=== PATIENT | male | born 1960 | race Caucasian/White ===

== ENCOUNTER 2017-11-30 14:02 | Observation (INO) | payer MEDICARE ==
[2017-11-30] MEDS ORDERED: NS 0.9% 1000 ML* 1,000 ML IV SCH ×2 (14:45→16:00)
[2017-11-30 14:47] LABS: ABS Basophils 0.1 10^3/ul (0-0.2); ABS Eosinophils 0.1 10^3/ul (0-0.6); ABS Lymphocytes 3.1 10^3/ul (1.0-4.8); ABS Monocytes 0.9 10^3/ul (0-0.8); ABS Neutrophils 10.8 10^3/ul (1.5-7.7); ABS Nucleated RBC 0 10^3/ul; Eosinophil % 0.4 % (0-6); Hematocrit 44 % (42-52); Hemoglobin 15.1 g/dl (14.0-18.0); Lymphocyte % 20.5 % (25-47); Mean Corpuscular HGB Conc 34 g/dl (31-36); Mean Corpuscular Hemoglobin 31 pg (27-31); Mean Corpuscular Volume 91 fL (80-94); Mean Platelet Volume 8.6 um3 (7.4-10.4); Nucleated Red Blood Cells % 0; Platelet Count 230 10^3/ul (150-450); Red Blood Count 4.82 10^6/ul (4.0-5.4); Red Cell Distribution Width 14 % (10.5-15); White Blood Count 14.9 10^3/ul (3.5-10.8)
--- NOTE | 2017-11-30 14:53 | RAD ---
INDICATION: CVA. COMPARISON: There are no prior studies available for comparison. TECHNIQUE: Contiguous axial sections of the brain were obtained from the skull base to the vertex without contrast. FINDINGS: The ventricles, cisterns and sulci are within normal limits. There are several areas of decreased density in the subcortical and periventricular white matter suggestive of chronic small vessel ischemic changes. No other focal abnormality or mass effect is seen. There is no evidence for hemorrhage. No significant focal osseous abnormality is seen. The visualized portion of the paranasal sinuses and mastoid air cells appear clear. The results of this exam were called to the referring clinician at 1449 hours. IMPRESSION: 1. NO EVIDENCE FOR GROSS ACUTE INFARCT, MASS EFFECT OR HEMORRHAGE. 2. FINDINGS SUGGESTIVE OF MILD CHRONIC SMALL VESSEL ISCHEMIC CHANGES.
[2017-11-30 15:07] LABS: EGFR Non-African American 84.8 (>60)
[2017-11-30] MEDS ORDERED: Aspirin TAB* 325 MG PO ONE (15:21)
[2017-11-30] MEDS ORDERED: Iohexol 350* (CONTRAST) 500 ML MDV IV ONE (15:36)
[2017-11-30 15:47] LABS: Urine Appearance Clear; Urine Blood Negative (Negative); Urine Color Straw; Urine Ketones Negative (Negative); Urine Protein Negative (Negative); Urine Specific Gravity 1.002 (1.010-1.030); Urine Urobilinogen Negative (Negative)
[2017-11-30] MEDS ORDERED: Ondansetron INJ* 2 MG/ML VIAL IV PRN (15:54)
[2017-11-30] MEDS ORDERED: traMADol TAB* 50 MG PO ONE (15:56)
[2017-11-30] MEDS ORDERED: Aspirin 81 mg CHEW TAB* 81 MG TAB.CHEW ONE (15:59)
--- NOTE | 2017-11-30 16:27 | RAD ---
Indication: Stroke. Sagittal and axial T1, axial T2, FLAIR, diffusion and susceptibility weighted images of the brain were obtained. Ventricular structures are midline. No midline shift is noted. The extra-axial spaces are unremarkable. There is mild central and cortical atrophy noted. Periventricular signal abnormalities are noted in the centrum semiovale bilaterally. This is more prominent on the left than on the right. Diffusion-weighted images demonstrates no restriction of diffusion. Posterior fossa and brainstem demonstrates no restriction of diffusion. Susceptibility weighted images demonstrates no susceptibility artifact. Mastoid air cells and paranasal sinuses are grossly unremarkable. IMPRESSION: Chronic ischemic White matter change. No restriction of diffusion is noted.
[2017-11-30] MEDS ORDERED: Aspirin 81 mg CHEW TAB* 81 MG TAB.CHEW PO ONE (16:40)
--- NOTE | 2017-11-30 16:58 | RAD ---
Indication: Stroke. Contrast: Administered 80.2 ml of OMNIPAQUE 350 mg/ml CTA of the neck and head was performed after IV contrast administration. Coronal and sagittal reconstructed images were obtained. Coronal, sagittal and 3-D reconstructive images were obtained. The common carotid arteries demonstrate no intimal wall thickening. No significant plaque is noted. Calcific plaque is noted at the origin of the left internal carotid artery. Minimal calcific plaque is noted at the origin of the right internal carotid artery. The remainder of the internal carotid arteries demonstrates normal caliber without evidence of dissection. The vertebral arteries demonstrates a dominant right vertebral artery. No evidence of vertebral artery dissection is noted. The intracranial circulation demonstrates normal bifurcation of the intracranial carotid arteries. No aneurysmal dilatation or branch occlusion is noted. The basilar artery and posterior cerebral arteries are grossly unremarkable. Soft tissues of the neck demonstrates no evidence of abnormal adenopathy. The visualized cervical spine demonstrates degenerative disc disease at C6-C7. No fracture of the cervical spine is noted. IMPRESSION: No evidence of carotid artery dissection. No branch occlusion or aneurysmal dilatation is noted. Minimal plaque is noted at the origins of both internal carotid arteries. Intracranial vessels demonstrates no aneurysmal dilatation or branch occlusion. The cervical spine demonstrates degenerative disc disease at C6-C7 without evidence of fracture.
--- NOTE | 2017-11-30 17:00 | RAD ---
Indication: Left shoulder injury. Single view of the left shoulder demonstrates a superiorly subluxed humeral head which may represent rotator cuff injury. AC joint arthritis is noted. No obvious fracture is noted on this limited single view. IMPRESSION: Superiorly subluxed humeral head. No fracture is noted.
--- NOTE | 2017-11-30 17:01 | RAD ---
Indication: Chest pain. Single frontal view of the chest performed at 1640 hours was reviewed. No prior study is available for comparison. No mediastinal shift is noted. Heart is of normal size and configuration. Lung lemus appear clear. IMPRESSION: NO ACTIVE CARDIOPULMONARY DISEASE IS NOTED.
--- NOTE | 2017-11-30 17:26 | RAD ---
Indication: Left rib injury. 3 views of left ribs are reviewed. No definite fracture is identified. No pneumothorax is noted. IMPRESSION: No definite fracture of the left ribs is noted.
--- NOTE | 2017-11-30 17:33 | ED ---
David Tony Stephanie, scribed for Santi Howard on 11/30/17 at 1442 . Neurological HPI - HPI Summary HPI Summary: The pt is a 57 y/o M presenting to the ED with c/o LOC that occurred at 11:00 today. Symptoms include L sided CP, 2 bumps on the back of his head and L sided weakness. The pt states he was sitting in a chair on the phone with his nephew. After hanging up the phone the pt remembers waking up on the floor and calling his nephew at 11:30 today. The pt denies confusion upon waking up. He states the L side of his body was dragging when he woke up. - History of Current Complaint Chief Complaint: EDChestPainROMI Stated Complaint: CHEST PAIN,SYNCOPE Time Seen by Provider: 11/30/17 14:22 Hx Obtained From: Patient, Family/Church History Teacher - nephew Onset/Duration: Sudden Onset, Started hours ago, Resolved Timing: Intermittent Episodes Lasting: - 30 min Current Severity: None Pain Intensity: 0 Pain Scale Used: 0-10 Numeric Character: Weak - L side UE and LE Aggravating: Nothing Alleviating: Nothing Associated Signs and Symptoms: Positive: Weakness, Loss of Consciousness, Chest Pain. Negative: Confusion - Allergy/Home Medications Home Medications: Home Medications Aspirin EC TAB* [Ecotrin EC Low Dose 81 MG*] 81 mg PO DAILY 11/30/17 [History Confirmed 11/30/17] Atorvastatin* [Lipitor*] 80 mg PO DAILY 11/30/17 [History Confirmed 11/30/17] Clopidogrel TAB* [Plavix TAB*] 75 mg PO DAILY 11/30/17 [History Confirmed ] Fluticasone NASAL SPRAY 50MCG* [Flonase NASAL SPRAY 50MCG*] 2 spray BOTH NARES DAILY 11/30/17 [History Confirmed 11/30/17] Venlafaxine EXT RELEASE CAP* [Effexor Xr CAP*] 37.5 mg PO DAILY 11/30/17 [ History Confirmed 11/30/17] amLODIPine TAB* [Norvasc 5 mg TAB*] 5 mg PO DAILY 11/30/17 [History Confirmed ] PMH/Surg Hx/FS Hx/Imm Hx Cardiovascular History: Reports: Other Cardiovascular Problems/Disorders - femoral bypass Musculoskeletal History: Reports: Hx of Fracture(s) - shoulder Sensory History: Denies: Hx Legally Blind EENT History: Denies: Hx Deafness - Surgical History Surgery Procedure, Year, and Place: SHOULDER SURGERY - Family History Known Family History: Negative: Renal Disease - Social History Occupation: Disabled Lives: With Family Hx Tobacco Use: Yes Smoking Status (MU): Current Every Day Smoker Review of Systems Positive: Other - 2 bumps on the back of his head. Negative: Fever Positive: Chest Pain Neurological: Other - LOC Positive: Weakness - L side. Negative: Slurred Speech All Other Systems Reviewed And Are Negative: Yes Physical Exam - Summary Physical Exam Summary: Appearance: Well appearing, no pain distress Skin: warm, dry, reflects adequate perfusion Head/face: normal Eyes: EOMI, NARINDER ENT: normal Neck: supple, non-tender Respiratory: CTA, breath sounds present Cardiovascular: RRR, pulses symmetrical Abdomen: non-tender, soft Bowel: present Musculoskeletal: normal, strength/ROM intact Neuro: sensory motor intact, A&Ox3, weakness on L side Triage Information Reviewed: Yes Vital Signs On Initial Exam: Initial Vitals Temp Pulse Resp BP Pulse Ox 97.1 F 84 16 160/73 98 11/30/17 14:08 11/30/17 14:08 11/30/17 14:08 11/30/17 14:08 11/30/17 14:08 Vital Signs Reviewed: Yes Diagnostics - Vital Signs Vital Signs Temp Pulse Resp BP Pulse Ox 11/30/17 14:14 12 11/30/17 14:08 97.1 F 84 16 160/73 98 - Laboratory Lab Results: Lab Results 11/30/17 11/30/17 11/30/17 Range/Units 14:26 14:26 14:26 WBC 14.9 H (3.5-10.8) 10^3/ul RBC 4.82 (4.0-5.4) 10^6/ul Hgb 15.1 (14.0-18.0) g/dl Hct 44 (42-52) % MCV 91 (80-94) fL MCH 31 (27-31) pg MCHC 34 (31-36) g/dl RDW 14 (10.5-15) % Plt Count 230 (150-450) 10^3/ul MPV 8.6 (7.4-10.4) um3 Neut % (Auto) 72.7 (38-83) % Lymph % (Auto) 20.5 L (25-47) % [place] % (Auto) 6.0 (0-7) % Eos % (Auto) 0.4 (0-6) % Baso % (Auto) 0.4 (0-2) % Absolute Neuts (auto) 10.8 H (1.5-7.7) 10^3/ul Absolute Lymphs (auto) 3.1 (1.0-4.8) 10^3/ul Absolute Monos (auto) 0.9 H (0-0.8) 10^3/ul Absolute Eos (auto) 0.1 (0-0.6) 10^3/ul Absolute Basos (auto) 0.1 (0-0.2) 10^3/ul Absolute Nucleated RBC 0 10^3/ul Nucleated RBC % 0 INR (Anticoag Therapy) 1.00 (0.77-1.02) APTT 29.4 (26.0-36.3) seconds Sodium 138 L (139-145) mmol/L Potassium 3.5 (3.5-5.0) mmol/L Chloride 103 (101-111) mmol/L Carbon Dioxide 28 (22-32) mmol/L Anion Gap 7 (2-11) mmol/L BUN 8 (6-24) mg/dL Creatinine 0.92 (0.67-1.17) mg/dL Est GFR ( Amer) 109.1 (>60) Est GFR (Non-Af Amer) 84.8 (>60) BUN/Creatinine Ratio 8.7 (8-20) Glucose 111 H (70-100) mg/dL POC Glucose (mg/dL) (70-100) mg/dL Calcium 9.5 (8.6-10.3) mg/dL Total Bilirubin 0.50 (0.2-1.0) mg/dL AST 30 (13-39) U/L ALT 37 (7-52) U/L Alkaline Phosphatase 70 (34-104) U/L Troponin I 0.01 (<0.04) ng/mL Total Protein 7.7 (6.4-8.9) g/dL Albumin 4.3 (3.2-5.2) g/dL Globulin 3.4 (2-4) g/dL Albumin/Globulin Ratio 1.3 (1-3) // Range/Units 14:48 WBC (3.5-10.8) 10^3/ul RBC (4.0-5.4) 10^6/ul Hgb (14.0-18.0) g/dl Hct (42-52) % MCV (80-94) fL MCH (27-31) pg MCHC (31-36) g/dl RDW (10.5-15) % Plt Count (150-450) 10^3/ul MPV (7.4-10.4) um3 Neut % (Auto) (38-83) % Lymph % (Auto) (25-47) % [place] % (Auto) (0-7) % Eos % (Auto) (0-6) % Baso % (Auto) (0-2) % Absolute Neuts (auto) (1.5-7.7) 10^3/ul Absolute Lymphs (auto) (1.0-4.8) 10^3/ul Absolute Monos (auto) (0-0.8) 10^3/ul Absolute Eos (auto) (0-0.6) 10^3/ul Absolute Basos (auto) (0-0.2) 10^3/ul Absolute Nucleated RBC 10^3/ul Nucleated RBC % INR (Anticoag Therapy) (0.77-1.02) APTT (26.0-36.3) seconds Sodium (139-145) mmol/L Potassium (3.5-5.0) mmol/L Chloride (101-111) mmol/L Carbon Dioxide (22-32) mmol/L Anion Gap (2-11) mmol/L BUN (6-24) mg/dL Creatinine (0.67-1.17) mg/dL Est GFR ( Amer) (>60) Est GFR (Non-Af Amer) (>60) BUN/Creatinine Ratio (8-20) Glucose (70-100) mg/dL POC Glucose (mg/dL) 104 H (70-100) mg/dL Calcium (8.6-10.3) mg/dL Total Bilirubin (0.2-1.0) mg/dL AST (13-39) U/L ALT (7-52) U/L Alkaline Phosphatase (34-104) U/L Troponin I (<0.04) ng/mL Total Protein (6.4-8.9) g/dL Albumin (3.2-5.2) g/dL Globulin (2-4) g/dL Albumin/Globulin Ratio (1-3) Result Diagrams: 11/30/17 14:26 11/30/17 14:26 Lab Statement: Any lab studies that have been ordered have been reviewed, and results considered in the medical decision making process. - CT Brain CT Interpretation: No Acute Changes CT Interpretation Completed By: Radiologist - 1. NO EVIDENCE FOR GROSS ACUTE INFARCT, MASS EFFECT OR HEMORRHAGE. 2. FINDINGS SUGGESTIVE OF MILD CHRONIC SMALL VESSEL ISCHEMIC CHANGES. ED physician has reviewed this report. - EKG 14:15 Cardiac Rate: NL EKG Rhythm: Sinus Rhythm - 79 BPM EKG Interpretation: No acute changes NIH Scale - NIH Scale Level of Consciousness: Alert/Keenly Responsive Ask Patient the Month and His/Her Age: Both Correct Ask Pt to Open/Close Eyes and Motor Grader Rough Grade/Release Non-Paretic Hand: Both Correctly Best Gaze (Only Horizontal Eye Movement): Normal Visual Field Testing: No Visual Loss Facial Paresis-Pt to Smile & Close Eyes or Grimace Symmetry: Normal/Symmetrical Motor Function - Right Arm: No Drift-Holds 10 Seconds Motor Function - Left Arm: No Drift-Holds 10 Seconds Motor Function - Right Leg: No Drift-Holds 10 Seconds Motor Function - Left Leg: Drifts LT 10 seconds Limb Ataxia-Must be out of Proportion to Weakness Present: Absent Sensory (Use Pinprick to Test Arms/Legs/Trunk/Face): Normal Best Language (Describe Picture, Name Items): No Aphasia Dysarthria (Read Several Words): Normal Extinction and Inattention: No Abnormality Total Score: 1 Re-Evaluation - Re-Evaluation First Eval Re-Evaluation Time: 15:16 Change: Unchanged - ED physician discussed the plan of admission with the pt and the pt understands and agrees. Course/Dx - Course Course Of Treatment: The pt is a 57 y/o M presenting to the ED with c/o LOC that occurred at 11:00 today. Symptoms include L sided CP, 2 bumps on the back of his head and L sided weakness. At 14:44, ED physician spoke to Dr. Colbert who will see the pt in the ED. At 15:10, ED physician spoke to Dr. Colbert about her examination of the pt and about possible MRI for further evaluation. At 15:21, Dr. Martinez admitted the pt. - Differential Dx Differential Diagnoses Neuro: Positive: Cerebrovascular Accident, Dysrhythmia, Intracranial Bleed, Seizure Disorder, Transient Ischemic Attack, Vasovagal Reaction, Other - acs - Diagnoses Provider Diagnoses: CVA (cerebral vascular accident), Chest pain, Syncope - Physician Notifications Discussed Care Of Patient With: Purnima Colbert Time Discussed With Above Provider: 14:44 Instructed by Provider To: MD Will See In ED - Critical Care Time Critical Care Time: 30-74 min - 30 Discharge - Sign-Out/Discharge Documenting (check all that apply): Discharge/Admit/Transfer - admit - Discharge Plan Condition: Stable Disposition: ADMITTED TO [facility] Referrals: Ezio Bledsoe DO [Primary Care Provider] - The documentation as recorded by the David martinez Stephanie accurately reflects the service I personally performed and the decisions made by , Santi Howard.
--- NOTE | 2017-11-30 17:56 | CONS ---
CC: Dr. Howard.* NEUROLOGY CONSULT: DATE OF CONSULT: 11/30/17 REQUESTING PHYSICIAN: Dr. Howard. REASON FOR CONSULT: Shanique ramirez. HISTORY OF PRESENT ILLNESS: Napoleon Mejia is a 57-year-old left-handed man with a history of peripheral vascular disease, status post bilateral femoral popliteal bypasses, hepatitis C, as well as prior alcoholism, who came into the emergency department after an episode of syncope. His nephew who is present with him reports that he spoke with him at 11 a.m., at which point his uncle was going to come and pick him up because he has been helping Mr. Mejia move out of his current apartment. About a half an hour later, Mr. Mejia called his nephew back saying that he had just woken up on the floor and the back of his head hurts and he did not know what had happened. He seemed completely coherent at the time when his nephew spoke with him at the second time, but he cannot account for that period of time. He did not have any urinary incontinence or tongue biting. He has no prior history of seizure. He felt like his left arm and leg were weak, but his left arm is chronically weak secondary to a neck/shoulder injury many years ago. However, he states that his left leg is his "good one" and it still feels off in some way. He also complains of some pain in his left chest, which is not reproducible with palpation. He has never had an episode like this before in the past. Shanique ramirez was called because of the concern for left-sided weakness after a syncope. PAST MEDICAL HISTORY: Peripheral vascular disease status post bilateral fem- pop bypass, hepatitis C, history of alcoholism now in remission for the past 4 to 5 years, neck/shoulder injury on the left with resultant left arm and hand weakness. Status post cholecystectomy. MEDICATIONS: Home medications: 1. Venlafaxine 37.5 mg daily. 2. Flonase 2 sprays daily. 3. Amlodipine 5 mg daily. 4. Clopidogrel 75 mg daily. 5. Atorvastatin 80 mg daily. 6. Aspirin 81 mg daily. ALLERGIES: No known allergies at this time, though he recently took the ZYBAN, which caused increased emotionality. SOCIAL HISTORY: He lives alone. He smokes cigarettes and occasionally smokes marijuana. He rolls his own cigarettes so he is not sure how much he smokes, but he has been trying to quit. He denies any drug use, but states that he did so in the past, but not recently. REVIEW OF SYSTEMS: As per the HPI, otherwise negative. PHYSICAL EXAM: Vital Signs: Temperature 97.1, blood pressure 160/73, on recheck 158/92, heart rate 84, oxygen saturation 98% on room air. General Examination: He appears older than his stated age. He is thin. He has long hair and poor dentition. He has multiple tattoos. His heart is in a regular, rate, and rhythm. I did not auscultate any bruits. Lungs were Clear to auscultation. Extremities: There is no lower extremity edema. Skin: Intact. Neurologic Examination: He is fully awake, alert, and oriented. He is able to describe the [employer] theft picture, name all objects from the stroke cards and read the phrases on the stroke cards. Pupils were equal, round, and reactive from 4 to 2 mm bilaterally. Versions are full without nystagmus. [place] are full to confrontation. Facial sensation and musculature is full and symmetric. Hearing is intact to finger rub. Palate elevates symmetrically. The tongue is midline. Shoulder shrug is full and symmetric. On motor examination, he guards the left arm and so his effort on formal strength testing is submaximal because he states there is pain with nearly all attempted movements. Despite that there does appear to be weakness of the left shoulder as well as the biceps and the triceps and his handgrip on that side is weaker, but he states this is chronically a problem and nothing new. His right arm and leg have full strength with no pronator drift. In the left leg there is some variable effort in the left hip flexor as well as the ankle dorsiflexor. Sensation to temperature was slightly diminished in the left lower extremity, but pinprick was equal in the lower extremities and upper extremities. [id number] and heel-to- mejia were intact without ataxia. Reflexes were 2+ throughout with downgoing toes. Romberg was negative. DIAGNOSTIC STUDIES/LAB DATA: His CBC showed a white blood cell count of 14.9, hemoglobin 15.1, hematocrit of 44, and platelet count of 230. His chemistry panel showed a sodium of 138. Normal renal function, normal liver function. Glucose of 111. Troponin is 0.01. Head CT was reviewed and it shows no acute intracranial abnormality and no significant small vessel disease evident. IMPRESSION: Napoleon Mejia is a 57-year-old man with multiple vacular risk factors who came in with syncope and some possible residual left leg weakness. He also has left upper extremity weakness, but this seems to be a more chronic problem. There is possibly some sensory changes in the left leg as well. He is unable to account for about 30 minutes this morning between 11 and 11:30. Given the syncope with possible focal weakness on exam now, we should evaluate for any posterior circulation stenosis or evidence of stroke in the posterior circulation as a transient basilar occlusion could have caused loss of consciousness and a residual extremity weakness. He will have CT angiogram of the head and neck. I would recommend MRI scan as well, but he indicates that he has some metal in his right forearm, which may preclude MRI. He does state that he has had MRIs in the past at [facility], but we do not have access to any of that imaging at this time. I asked to have a lactate added on as well. He has a slightly elevated white count and within the differential for syncope and focal weakness could also be seizure though he has no prior history and nothing in his past medical history which would necessarily put him at risk for this. We will have the hospitalist evaluate him for admission and I will sign him out to Dr. Bustillos who will take over call for Neurology [facility]. [id number]/[facility] [place] #: [id number] SAHARA
[2017-11-30] MEDS ORDERED: Nicotine Inhaler* 10 MG AMP INH PRN (18:18)
[2017-11-30] MEDS ORDERED: Mouth Piece, Nicotine* 1 EACH CARTRIDGE INH PRN ×2 (18:18)
--- NOTE | 2017-11-30 18:20 | HP ---
CC: Dr. Colbert; Dr. Bledsoe from [facility] * HISTORY AND PHYSICAL: DATE OF ADMISSION: 11/30/17. PRIMARY CARE PROVIDER: Dr. Bledsoe from [facility]. ATTENDING PHYSICIAN WHILE IN THE HOSPITAL: Reed Andrew MD * (report dictated by Greg Allen NP). CHIEF COMPLAINT: 1. Syncope. 2. Left-sided pain. 3. Left leg weakness. HISTORY OF PRESENT ILLNESS: Mr. Mejia is a 57-year-old male patient who has a history of hyperlipidemia, hypertension. He has a history of valvular heart disease, he is unsure what valve. He has a history of depression, peripheral arterial disease. He had a femoral bypass surgery bilaterally done in June of this year. He also has a history of hepatitis C, liver cirrhosis, and lung nodules and he is still a heavy smoker. He comes in to our emergency department today stating that he was on the phone this morning with his nephew, he remembers this very clearly, he was feeling good, again, no chest pain, no recent fevers or chills. No nausea. He had no lightheadedness, no dizziness. He was on the phone with nephew, he said that he was going to get a shower and after the shower he was going to come up and get him. Next thing he knew, he was on the floor. His 2 small dogs were over him trying to lick his face. He knew he was down the floor. He had landed on his left side. He knew he was in his house. He was not incontinent of urine or stool. He got back on the phone call with his nephew and said that he was going to take a shower and his nephew said his uncle mentioned that he will do that half an hour ago, so presumably he was on the floor for half an hour. The patient denies any recent coughing. No URI type symptoms. He said he knew he hit his head when he went down because he had some pain in the back side, left side of his head and he noticed that his left shoulder, which always bothers him was having significant amount of pain in the left shoulder, underneath the left shoulder, and in his left chest after he had fallen. His nephew came over, evaluated him and convinced him to come into the ER. He was evaluated here in the ED and it was noted that he had some left-sided weakness. He denied having any left-sided weakness. He said he did not notice this when he was at home. He did not notice any facial drooping or any trouble with his speech, or blurry vision. Shanique Sibley was called , there was concern for the syncope, left-sided weakness and we were asked to evaluate for admission. PAST MEDICAL HISTORY: Significant for: 1. Hyperlipidemia. 2. Hypertension. 3. CAD. 4. Depression. 5. Peripheral arterial disease. 6. Liver cirrhosis. 7. Hepatitis C. 8. Lung nodule. 9. Valvular heart disease. 10. COPD. PAST SURGICAL HISTORY: 1. He has had femoral bypass surgery. 2. He has had liver surgery due to trauma. MEDICATIONS: Home meds according to the list provided include: 1. Effexor 37.5 mg daily. 2. Flonase 2 sprays both nares daily. 3. Norvasc 5 mg daily. 4. Plavix 75 mg daily. 5. Lipitor 80 mg daily. 6. Aspirin 81 mg daily. ALLERGIES TO MEDICATIONS: He says he is not to take acetaminophen due to his liver dysfunction. FAMILY HISTORY: His mother was diabetic and had cancer. Father had a history of AL and diabetes. SOCIAL HISTORY: He still smokes about a pack a day. He said he was smoking since he is a teenager. He does not drink alcohol. His surrogate decision maker will be his daughter and his nephew. REVIEW OF SYSTEMS: There is no documented fever. He denies having any significant weight change. There was no double vision. He denies having any ear discharge. There is no rhinorrhea. There is no sore throat. No thyroid enlargement. He denies having any chest pain. There is no orthopnea. There was no nocturnal dyspnea. Denies having any abdominal pain. There is no nausea. There is no vomiting. There is no dysuria. There is no frequency. There was loss of consciousness. There was no seizure reported. No pruritus and no skin ulcerations. Review of 14 systems completed, all others negative. PHYSICAL EXAMINATION GENERAL: At this time, Mr. Mejia is a 57-year-old male patient. He is older than stated age. He is sitting in the ED stretcher. He does not appear to be in any acute distress. VITAL SIGNS: Blood pressure 135/83 with a pulse 85, respirations 14, O2 sat 96% , temperature 97.1. HEENT: Head is atraumatic, normocephalic. Eyes: EOMs intact. Sclerae anicteric and not pale. Throat: Oral mucosa appears to be dry. No oropharyngeal erythema. NECK: Supple. LUNGS: Clear to auscultations bilaterally. No wheezes, rales, or rhonchi. HEART: Sounds S1, S2. Regular rate and rhythm. No murmurs, rubs, or gallops. ABDOMEN: Soft, it was flat, nontender. Bowel sounds are present. EXTREMITIES: Pulses are 2+ throughout. He does have weakness noted to the left lower extremity. He does have 4/5 strength compared to the right upper extremity. He has limited range of motion in the left upper extremity due to the shoulder pain, which is chronic for him, he says. NEUROLOGICAL: The patient is awake. He is alert. He is oriented x3. His tongue was midline. His industrial maintenance manager were equal. Speech was clear. Pqjavy-tj-wldp intact bilaterally. Yohw-fc-tpzw intact bilaterally, but he does have some slight weakness noted to the left lower extremity and the left upper extremity. SKIN: Grossly intact. DIAGNOSTIC STUDIES/LABORATORY DATA: His labs: WBC of 14.9, RBC of 4.82, hemoglobin of 15.1, hematocrit of 44, platelet count of 230. The INR was 1. PTT was 29.4. Sodium was 138, potassium of 3.5, chloride of 103, bicarb 28, BUN 8, creatinine of 0.92, glucose of 111, calcium 9.5. Total bili of 0.5, AST 30, ALT 37, alk phos 70. Troponin 0.01. Albumin of 4.3. He had a brain CT obtained today, which revealed no evidence for gross acute infarct, mass effect or hemorrhage. Findings suggestive of mild chronic small vessel ischemic changes. He had an EKG obtained today as well, showed a normal sinus rhythm, rate of 79. No ST elevations or T-wave inversions were noted. Old medical records were reviewed. ASSESSMENT AND PLAN: Mr. Mejia is a 57-year-old male patient with multiple medical problems coming in to the ED today with complaints of a syncopal episode , now found to have left-sided weakness. He will be admitted under observation status for: 1. Left-sided weakness, concerned for possible Ashwin's paralysis or possible cerebrovascular accident. At this point, Dr. Colbert did evaluate the patient. We will get frequent neuro checks. He does have the left-sided weakness, I am concerned, so I will get an MRI of the brain, CTA of the head and neck. We will also get an echo with bubble study. We will continue with frequent neurological evaluation and we will continue to monitor him. I am also checking his lactic acid to see if this is elevated. We may need to consider seizure, do an EEG, but again I will defer further recommendations to Neurology. We will continue his aspirin, stain. At this point, I will check lipids and an A1c in the morning. 2. Chest pain. This seems like musculoskeletal, it could be secondary to the fact that he fell on that side when he passed out. So at this point, I will get imaging, but he does have significant risk factors for acute coronary syndrome, so I will cycle his troponins and I am getting an echo. 3. Hyperlipidemia. We will check a lipid panel in the morning. 4. Hypertension. I am going to hold his Norvasc. We will allow for permissive hypertension until we know for sure that this is not a cerebrovascular accident. 5. History of coronary artery disease. Continue statin, aspirin therapy. He is on Plavix as well. 6. Depression. Continue with supportive care. 7. Peripheral arterial disease. Continue with meds as prescribed. 8. History of valvular heart disease. I am getting an echo. 9. History of hepatitis C and liver cirrhosis. We will avoid hepatotoxic agents. Follow with primary. 10. History of lung cancer. Follow with PCP. 11. DVT prophylaxis: I have ordered heparin subcu. 12. Code status: Full code. 13. Fluids, electrolytes, and nutrition: He can have a heart-healthy diet. TIME SPENT: On the admission 60 minutes, greater than half that time spent face -to- face with the patient obtaining my history and physical; other half time was spent going over the plan of care with the patient and implementing the plan of care. I did discuss the plan of care with my attending, Dr. Andrew, he is in agreement. GREG ALLEN, BARBARA [id number]/[facility] #: [id number] SAHARA
[2017-11-30] MEDS ORDERED: Morphine VIAL* 4 MG/ML VIAL (1 ml vial) IV PRN (19:28)
--- NOTE | 2017-11-30 20:23 | RAD ---
Indication: Left shoulder pain. 3 views of left shoulder demonstrates AC joint arthritis. There is no fracture. IMPRESSION: AC joint arthritis without fracture.
--- NOTE | 2017-11-30 20:42 | ECHO ---
Patient: CAMRON HORNER [facility] Rec#: [id number] : 1960 Date: 11/30/2017 Age: 57y Height: 170.2 cm / 67.0 in Weight: 63.5 kg / 140.0 lbs Sex: M BSA: 1.7 Room#: [facility] Admit Date#: 11/30/2017 Type: Inpatient Referring: Greg Allen NP Reading: David Bhatti MD Gas Plumbing Inspector: Goldie Mercado RN RDCS Transthoracic Echocardiogram Indication: Syncope, TIA BP: 145/77 HR: 70 Rhythm: NSR Findings History: PVD S/P bilateral fem-pop bypass, hepatitis C, smoker, prior ETOH use Technical Comments: The study quality is fair. The study is technically limited due to the patient's smoking history. Left Ventricle: The left ventricular chamber size is normal. There is no left ventricular hypertrophy. Global left ventricular wall motion and contractility are within normal limits. There is normal left ventricular systolic function. The estimated ejection fraction is 55-60%. Normal left ventricular diastolic filling is observed. Left Atrium: The left atrial chamber size is normal. Right Ventricle: The right ventricular cavity size is normal. The right ventricular global systolic function is low normal. Right Atrium: The right atrial cavity size is normal. A patent foramen ovale is demonstrated by agitated contrast. Aortic Valve: The aortic valve is trileaflet. The aortic valve leaflets are mildly thickened. There is trace to mild aortic regurgitation. There is no evidence of aortic stenosis. Mitral Valve: The mitral valve leaflets are mildly thickened. There is trace to mild mitral regurgitation. There is no evidence of mitral stenosis. Tricuspid Valve: The tricuspid valve leaflets are normal. There is trace to mild tricuspid regurgitation. Unable to estimate the right ventricular systolic pressure. There is no tricuspid stenosis. Pulmonic Valve: The pulmonic valve appears normal. There is a trace pulmonic regurgitation. There is no pulmonic stenosis. Pericardium: There is no significant pericardial effusion. Aorta: There is no dilatation of the ascending aorta. The aortic arch is not well visualized. There is no dilation of the aortic root. Pulmonary Artery: The main pulmonary artery is not well visualized. Venous: The inferior vena cava appears normal in size. There is a greater than 50% respiratory change in the inferior vena cava dimension. Contrast: Normal saline was used as contrast for the bubble study. Image 1. Summary: There was not any prior study for comparison. Conclusions The left ventricular chamber size is normal. There is normal left ventricular systolic function. The estimated ejection fraction is 55-60%. There is trace to mild aortic regurgitation. There is trace to mild mitral regurgitation. There is trace to mild tricuspid regurgitation. There is a trace pulmonic regurgitation. A patent foramen ovale is demonstrated by agitated contrast. No previous echo available. Measurements Name Value Normal Range RVDdMajor (2D) 3.4 cm (2.2 - 4.4) RAd ISD 4CH 4.2 cm (3.4 - 4.9) RA (A4C)W 3.4 cm (2.9 - 4.6) IVSd (2D) 1 cm (0.6 - 1) LVPWd (2D) 0.9 cm (0.6 - 1) LVIDd (2D) 3.6 cm (3.6 - 5.4) LVIDs (2D) 2.7 cm - LV FS (2D) 25 % (25 - 45) Aortic Annulus 2.2 cm (1.4 - 2.6) Ao root diameter (2D) 3.2 cm (2.1 - 3.5) Ascending Ao 2.7 cm (2.1 - 3.4) LA dimension (AP) 2D 2.5 cm (2.3 - 3.8) LAd ISD 4CH 3.7 cm (2.9 - 5.3) LA ISD 4CH W 3.5 cm (2.5 - 4.5) Name Value Normal Range LA ESV SP 4CH (A/L) 28 ml - LA ESV SP 2CH (A/L) 37 ml - LA ESV BP (A/L) 35 ml - LA ESV BP (A/L) index 20.4 ml/m2 - LA ESV SP 4CH (MOD) 25 ml - LA ESV SP 2CH (MOD) 34 ml - Name Value Normal Range MV E-wave Vmax 0.67 m/sec - MV deceleration time 248 msec - MV A-wave Vmax 0.9 m/sec - MV E:A ratio 0.74 ratio - LV septal e' Vmax 0.09 m/sec - LV lateral e' Vmax 0.13 m/sec - LV E:e' septal ratio 7.4 ratio - LV E:e' lateral ratio 5.2 ratio - Name Value Normal Range AV Vmax 1.3 m/sec - AV VTI 28.3 cm - AV peak gradient 5 mmHg - AV mean gradient 3.9 mmHg - LVOT Vmax 1.1 m/sec - LVOT VTI 19.4 cm - LVOT peak gradient 4.6 mmHg - LVOT mean gradient 2 mmHg - Name Value Normal Range IVC diameter 2 cm - Name Value Normal Range PV Vmax 0.85 m/sec -
[2017-11-30] MEDS: oxyCODONE TAB* 5 MG TAB PO PRN (20:46)
[2017-11-30] MEDS: Heparin VIAL(*) 5000 UNITS/ML VIAL (FIVE THOUSAND) SUBCUT SCH (20:47)
[2017-11-30 22:16] LABS: Urine Appearance Clear; Urine Blood Negative (Negative); Urine Color Yellow; Urine Ketones Negative (Negative); Urine Protein Negative (Negative); Urine Specific Gravity > 1.060 (1.010-1.030); Urine Urobilinogen Positive (Negative)
[2017-12-01 05:35] LABS: ABS Basophils 0.1 10^3/ul (0-0.2); ABS Eosinophils 0.2 10^3/ul (0-0.6); ABS Monocytes 0.6 10^3/ul (0-0.8); ABS Neutrophils 3.5 10^3/ul (1.5-7.7); ABS Nucleated RBC 0 10^3/ul; Eosinophil % 2.2 % (0-6); Hematocrit 42 % (42-52); Hemoglobin 14.6 g/dl (14.0-18.0); Lymphocyte % 40.3 % (25-47); Mean Corpuscular HGB Conc 35 g/dl (31-36); Mean Corpuscular Hemoglobin 32 pg (27-31); Mean Corpuscular Volume 90 fL (80-94); Mean Platelet Volume 8.7 um3 (7.4-10.4); Nucleated Red Blood Cells % 0.1; Platelet Count 189 10^3/ul (150-450); Red Blood Count 4.61 10^6/ul (4.0-5.4); Red Cell Distribution Width 14 % (10.5-15); White Blood Count 7.4 10^3/ul (3.5-10.8)
[2017-12-01 05:48] LABS: INR 1.02 (0.77-1.02)
[2017-12-01 05:56] LABS: EGFR Non-African American 112.5 (>60)
[2017-12-01] MEDS: oxyCODONE TAB* 5 MG TAB PO PRN (05:59)
[2017-12-01] MEDS: Heparin VIAL(*) 5000 UNITS/ML VIAL (FIVE THOUSAND) SUBCUT SCH (05:59)
--- NOTE | 2017-12-01 08:54 | PN ---
Subjective Date of Service: 12/01/17 Interval History: No problems overnight. He notes chronic LUE pain and some LLE weakness which he feels is much better. No other focal weakness or numbness. No problems with speech or swallowing. No chest pain or SOB. 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 Smokes marijuana now and then and we discussed smoking cessation. He is anxious to go home. MRI: chronic white matter disease, no acute changes CTA: No significant stenosis Echo: PFO noted LDL: 77 HgA1c < 6 Left Shoulder X-ray: superiorly subluxed humeral head, no fx. A/C joint arthritis Rib X-ray: No definite fx left ribs CXR: No active CP disease Objective Active Medications: Aspirin (Aspirin Ec Tab*) 81 mg PO DAILY [facility] Atorvastatin Calcium (Lipitor*) 80 mg PO DAILY [facility] Clopidogrel Bisulfate (Plavix Tab*) 75 mg PO DAILY [facility] Device (Nicotine Mouth Piece*) 1 each INH .USE WITH NICOTROL PRN PRN Reason: CRAVING Heparin Sodium (Porcine) (Heparin Vial(*)) 5,000 units SUBCUT Q8HR [facility] Last Admin: 12/01/17 05:59 Dose: 5,000 units Morphine Sulfate (Morphine Vial*) 4 mg IV Q4H PRN PRN Reason: PAIN Nicotine (Nicotine Inhaler*) 10 mg INH Q2H PRN PRN Reason: CRAVING Ondansetron HCl (Zofran Inj*) 4 mg IV Q6H PRN PRN Reason: NAUSEA Oxycodone HCl (Roxycodone Tab*) 5 mg PO Q4H PRN PRN Reason: PAIN Last Admin: 12/01/17 05:59 Dose: 5 mg Venlafaxine HCl (Effexor Xr Cap*) 37.5 mg PO DAILY [facility] Vital Signs 11/30/17 11/30/17 11/30/17 16:43 16:45 17:00 Temperature Pulse Rate 79 76 76 Respiratory 14 15 21 Rate Blood Pressure 123/82 (mmHg) O2 Sat by Pulse 98 98 98 Oximetry 11/30/17 11/30/17 11/30/17 17:14 17:26 17:45 Temperature 98.8 F Pulse Rate 73 74 Respiratory 15 20 Rate Blood Pressure 145/77 136/89 (mmHg) O2 Sat by Pulse 97 95 Oximetry 11/30/17 11/30/17 11/30/17 18:03 19:19 19:50 Temperature 98.2 F 98.9 F Pulse Rate 73 79 69 Respiratory 16 16 Rate Blood Pressure 155/81 124/52 132/63 (mmHg) O2 Sat by Pulse 97 98 Oximetry 11/30/17 11/30/17 11/30/17 20:46 23:55 23:56 Temperature 98.3 F Pulse Rate 67 Respiratory 18 20 Rate Blood Pressure 115/70 (mmHg) O2 Sat by Pulse 98 Oximetry 12/01/17 12/01/17 12/01/17 02:01 03:19 05:59 Temperature 97.8 F Pulse Rate 65 Respiratory 17 20 18 Rate Blood Pressure 119/71 (mmHg) O2 Sat by Pulse 97 Oximetry 12/01/17 07:28 Temperature 98.4 F Pulse Rate 66 Respiratory 16 Rate Blood Pressure 110/63 (mmHg) O2 Sat by Pulse 97 Oximetry Oxygen Devices in Use Now: None Neurology Exam: General: Awake, Alert, Oriented x3 HEENT: Normocephalic/atraumatic, sclera anicteric, mucous membranes moist Neck: Supple Chest: Clear to auscultation bilaterally Cardiovascular: Regular rate and rhythm without murmurs, rubs, gallops Abdomen: Soft, nontender/nondistended Extremities: No clubbing, cyanosis, or edema Neurological Findings: Speech: fluent without dysarthria, repetition intact Cranial Nerve: PEERL, EOM intact, VFF, no nystagmus, face symmetric bilaterally , facial sensation intact, hearing intact to finger rub bilaterally, palate elevates symmetrically, tongue midline, SCM and Trapezius 5/5. Motor: Some giveway weakness proximal LUE otherwise 5/5 throughout without drift. Sensation: intact to LT/PP bilaterally upper and lower extremities Deep Tendon Reflex: 2+ symmetric in the upper/lower extremities Finger to nose, rapid alternating movements intact without tremor, no dysdiadochokinesia Gait: intact with good arm swing and stride Result Diagrams: 12/01/17 05:22 12/01/17 05:22 Additional Lab and Data: Lab Results 11/30/17 11/30/17 11/30/17 Range/Units 14:26 14:26 14:26 WBC 14.9 H (3.5-10.8) 10^3/ul RBC 4.82 (4.0-5.4) 10^6/ul Hgb 15.1 (14.0-18.0) g/dl Hct 44 (42-52) % MCV 91 (80-94) fL MCH 31 (27-31) pg MCHC 34 (31-36) g/dl RDW 14 (10.5-15) % Plt Count 230 (150-450) 10^3/ul MPV 8.6 (7.4-10.4) um3 Neut % (Auto) 72.7 (38-83) % Lymph % (Auto) 20.5 L (25-47) % [place] % (Auto) 6.0 (0-7) % Eos % (Auto) 0.4 (0-6) % Baso % (Auto) 0.4 (0-2) % Absolute Neuts (auto) 10.8 H (1.5-7.7) 10^3/ul Absolute Lymphs (auto) 3.1 (1.0-4.8) 10^3/ul Absolute Monos (auto) 0.9 H (0-0.8) 10^3/ul Absolute Eos (auto) 0.1 (0-0.6) 10^3/ul Absolute Basos (auto) 0.1 (0-0.2) 10^3/ul Absolute Nucleated RBC 0 10^3/ul Nucleated RBC % 0 INR (Anticoag Therapy) 1.00 (0.77-1.02) APTT 29.4 (26.0-36.3) seconds Sodium 138 L (139-145) mmol/L Potassium 3.5 (3.5-5.0) mmol/L Chloride 103 (101-111) mmol/L Carbon Dioxide 28 (22-32) mmol/L Anion Gap 7 (2-11) mmol/L BUN 8 (6-24) mg/dL Creatinine 0.92 (0.67-1.17) mg/dL Est GFR ( Amer) 109.1 (>60) Est GFR (Non-Af Amer) 84.8 (>60) BUN/Creatinine Ratio 8.7 (8-20) Glucose 111 H (70-100) mg/dL POC Glucose (mg/dL) (70-100) mg/dL Calcium 9.5 (8.6-10.3) mg/dL Total Bilirubin 0.50 (0.2-1.0) mg/dL AST 30 (13-39) U/L ALT 37 (7-52) U/L Alkaline Phosphatase 70 (34-104) U/L Troponin I 0.01 (<0.04) ng/mL Total Protein 7.7 (6.4-8.9) g/dL Albumin 4.3 (3.2-5.2) g/dL Globulin 3.4 (2-4) g/dL Albumin/Globulin Ratio 1.3 (1-3) 11/30/17 Range/Units 14:48 WBC (3.5-10.8) 10^3/ul RBC (4.0-5.4) 10^6/ul Hgb (14.0-18.0) g/dl Hct (42-52) % MCV (80-94) fL MCH (27-31) pg MCHC (31-36) g/dl RDW (10.5-15) % Plt Count (150-450) 10^3/ul MPV (7.4-10.4) um3 Neut % (Auto) (38-83) % Lymph % (Auto) (25-47) % [place] % (Auto) (0-7) % Eos % (Auto) (0-6) % Baso % (Auto) (0-2) % Absolute Neuts (auto) (1.5-7.7) 10^3/ul Absolute Lymphs (auto) (1.0-4.8) 10^3/ul Absolute Monos (auto) (0-0.8) 10^3/ul Absolute Eos (auto) (0-0.6) 10^3/ul Absolute Basos (auto) (0-0.2) 10^3/ul Absolute Nucleated RBC 10^3/ul Nucleated RBC % INR (Anticoag Therapy) (0.77-1.02) APTT (26.0-36.3) seconds Sodium (139-145) mmol/L Potassium (3.5-5.0) mmol/L Chloride (101-111) mmol/L Carbon Dioxide (22-32) mmol/L Anion Gap (2-11) mmol/L BUN (6-24) mg/dL Creatinine (0.67-1.17) mg/dL Est GFR ( Amer) (>60) Est GFR (Non-Af Amer) (>60) BUN/Creatinine Ratio (8-20) Glucose (70-100) mg/dL POC Glucose (mg/dL) 104 H (70-100) mg/dL Calcium (8.6-10.3) mg/dL Total Bilirubin (0.2-1.0) mg/dL AST (13-39) U/L ALT (7-52) U/L Alkaline Phosphatase (34-104) U/L Troponin I (<0.04) ng/mL Total Protein (6.4-8.9) g/dL Albumin (3.2-5.2) g/dL Globulin (2-4) g/dL Albumin/Globulin Ratio (1-3) Assessment/Plan 57 year old with multiple vascular risk factors, history of PVD with re- vascularization, on ASA, Plavix, admitted with syncopal like event, possible LLE numbness/weakness now resolved. Chronic LUE weakness 2/2 to old injury. PFO on Echo, otherwise workup negative 1. Plan for Bilateral LE Dopplers to r/o DVT 2. Can schedule for outpatient AMELIA to confirm PFO, would not roving changer at this point 3. Continue ASA/Plavix 4. Goal LDL < 70, adjust statin as necessary 5. BP control as necessary 6. Non-diabetic 7. Smoking cessation discussed Patient can go home today after LE dopplers, assuming negative. I will be happy to follow him up as outpatient as well. Thank you for he opportunity to participate in his care.
[2017-12-01] MEDS ORDERED: Atorvastatin* 80 MG TAB PO SCH (09:00)
[2017-12-01] MEDS ORDERED: Clopidogrel TAB* 75 MG PO SCH (09:00)
[2017-12-01] MEDS ORDERED: Aspirin EC TAB* 81 MG TAB.EC PO SCH (09:00)
[2017-12-01] MEDS ORDERED: Venlafaxine EXT RELEASE CAP* 37.5 MG PO SCH (09:00)
--- NOTE | 2017-12-01 11:14 | RAD ---
INDICATION: Patent foramen ovale and stroke. COMPARISON: No relevant prior exams available on the [facility] PACS for comparison. TECHNIQUE: Sibley scale, color Doppler, and spectral analysis of the deep veins of the BILATERAL lower extremities. Vessel compression, phasicity, and augmentation assessed. REPORT: The RIGHT common femoral, great saphenous, profunda femoral, femoral, popliteal, peroneal, and posterior tibial veins are patent. The LEFT common femoral, great saphenous, profunda femoral, femoral, popliteal, peroneal, and posterior tibial veins are patent. IMPRESSION: No evidence for RIGHT or LEFT lower extremity DVT.
--- NOTE | 2017-12-01 11:20 | PN ---
Subjective Date of Service: 12/01/17 Interval History: Mr. Mejia denies complaint and he is eager for discharge to home. Objective Active Medications: Aspirin (Aspirin Ec Tab*) 81 mg PO DAILY [facility] Atorvastatin Calcium (Lipitor*) 80 mg PO DAILY [facility] Clopidogrel Bisulfate (Plavix Tab*) 75 mg PO DAILY [facility] Device (Nicotine Mouth Piece*) 1 each INH .USE WITH NICOTROL PRN Heparin Sodium (Porcine) (Heparin Vial(*)) 5,000 units SUBCUT Q8HR [facility] Morphine Sulfate (Morphine Vial*) 4 mg IV Q4H PRN Nicotine (Nicotine Inhaler*) 10 mg INH Q2H PRN Ondansetron HCl (Zofran Inj*) 4 mg IV Q6H PRN Oxycodone HCl (Roxycodone Tab*) 5 mg PO Q4H PRN Venlafaxine HCl (Effexor Xr Cap*) 37.5 mg PO DAILY [facility] Vital Signs: Temp Pulse Resp BP Pulse Ox 98.4 F 66 18 110/63 97 12/01/17 07:28 12/01/17 07:28 12/01/17 08:57 12/01/17 07:28 12/01/17 07:28 Oxygen Devices in Use Now: None Result Diagrams: 12/01/17 05:22 12/01/17 05:22 Additional Lab and Data: Vital Signs: Temp Pulse Resp BP Pulse Ox 98.4 F 66 18 110/63 97 12/01/17 07:28 12/01/17 07:28 12/01/17 08:57 12/01/17 07:28 12/01/17 07:28 Assess/Plan/Problems-Billing Assessment: Mr. Mejia is a 57 year old with multiple vascular risk factors, history of PVD with re-vascularization, on ASA, Plavix, admitted with syncopal like event, possible LLE numbness/weakness now resolved which is likely chronic LUE weakness 2/2 to old injury. - Patient Problems (1) Syncope Comment: - No clear inciting factors. No prodrome or recent illness. - No evidence of arrhythmia on telemetry. Echo with PFO only, no significant wall motion or valvular abnormalities. Will need AMELIA for further evaluation. No DVT noted on peripheral ultrasound today. - Continue aspirin and plavix. Continue statin. - Patient strongly recommended to follow up with cardiology at [place] for likely holter monitor or loop recorder. (2) Left shoulder pain Comment: - No evidence of fracture of subluxation. - Dr. Chin reviewed films and recommended follow up outpatient. (3) Hypertension Comment: - Continue amlodipine. (4) DVT prophylaxis (5) Full code status Status and Disposition: OBV. Discharge to home.
[2017-12-01 11:34] VITALS: BP 110/73
--- NOTE | 2017-12-01 13:42 | DS ---
CC: Gary Trejo * [facility] MEDICINE DISCHARGE SUMMARY: DATE OF ADMISSION: 11/30/17 DATE OF DISCHARGE: 12/01/17 PRIMARY CARE PHYSICIAN: Gary Trejo. ATTENDING PHYSICIAN: Dr. Concepcion * (dictation provided by Anjelica Houser NP). PRIMARY DIAGNOSES: 1. Syncope. 2. Left shoulder pain, chronic. SECONDARY DIAGNOSES: 1. Hyperlipidemia. 2. Hypertension. 3. Coronary artery disease. 4. Depression. 5. Peripheral arterial disease. 6. Liver cirrhosis. 7. Hepatitis C. 8. Lung nodule. 9. Valvular heart disease (per the patient report, but not confirmed). 10. Chronic obstructive pulmonary disease. 11. Femoropopliteal bypass. 12. History of liver surgery due to trauma. MEDICATIONS AT THE TIME OF DISCHARGE: No medication changes. They are: 1. Effexor 37.5 mg p.o. daily. 2. Flonase 2 sprays both nares daily. 3. Norvasc 5 mg p.o. daily. 4. Plavix 75 mg p.o. daily. 5. Lipitor 80 mg p.o. daily. 6. Aspirin 81 mg p.o. daily. HOSPITAL COURSE: Mr. Mejia is a 57-year-old male with a past medical history of hypertension, hyperlipidemia, reported coronary artery disease, peripheral arterial disease with recent fem-pop bypass, who presented to the hospital on with concern for a syncopal episode and left-sided weakness. Please see the dictated H and P from Greg Allen NP, for complete details. In brief, the patient reported that he was getting into the shower when he suddenly found himself on the floor. He had no prodromal symptoms. He had no recent illnesses. After falling, he had a significant pain in his left shoulder and also concern for left-sided weakness on arrival in the emergency room. His workup included a CT of the brain, which was read as follows: "No evidence for gross or acute infarct, mass effect, or hemorrhage. Findings suggestive of mild chronic small vessel ischemic changes." He had a brain MRI, which was read as follows: "Chronic ischemic white matter change. No restriction of diffusion is noted." The patient had a head and neck CTA which is read as follows: "No evidence of a carotid artery dissection, no branch occlusion or aneurysmal dilatation is noted, minimal plaque is noted at the origins of both internal carotid arteries. Intracranial vessels demonstrate no aneurysmal dilatation or branch occlusion." The patient was seen in consultation by Dr. Purnima Colbert in the emergency room, who agreed with the workup. She agreed that the patient's left upper extremity weakness was likely a chronic issue related to chronic left shoulder pain, exacerbated by the fall onto his left side. The remainder of Mr. Mejia's workup included a chest x-ray, which showed "no active cardiopulmonary disease." He had a rib x-ray, which showed "no definite fracture of the left rib is noted." He had a shoulder x-ray, which showed "severely subluxed humeral head, no fracture is noted." For the suspected shoulder injury, the case was reviewed with Dr. Chin from Orthopedic Surgery. He reviewed a followup shoulder x-ray, which did not show a fracture or any subluxation. He recommended that the patient follow up closely with him in the outpatient setting or one of the [place] providers per his preference. For the episode of syncope, the patient was monitored on telemetry and had no evidence of arrhythmia. He had a transthoracic echocardiogram, which showed normal left ventricular chamber size and a normal estimated ejection fraction of 55% to 60%. No significant valvular abnormality, but did show a patent foramen ovale demonstrated by agitated contrast. Because of the concern for PFO , the patient did also go in for a venous Doppler study, which showed no evidence of DVT in either lower extremity. He was followed again by Dr. Bustillos from Neurology today, who recommended that the patient have a transesophageal echocardiogram outpatient for further evaluation of possible PFO. The patient is to continue on aspirin and Plavix and atorvastatin for stroke prevention given his atherosclerotic risk noted by his peripheral vascular disease and recent fem-pop bypass. The patient is also recommended to follow up closely with Cardiology at [place] regarding further evaluation for syncopal episode likely with Holter monitor or loop recorder. Mr. Mejia is medically stable for discharge to home. DISPOSITION: Home. DIET: Heart healthy. ACTIVITY: As tolerated. FOLLOWUP PLANS: 1. Please follow up with Dr. Bledsoe in Cardiology at [place] regarding transesophageal echocardiogram and likely Holter monitor or loop recorder placement. 2. Please follow up with Orthopedic Surgery. The patient could see Dr. Chin if he so chooses or a physician at [place]. 3. The patient is also offered to follow up with Dr. Bustillos from Neurology. TIME SPENT: Approximately, 60 minutes was spent on the discharge of this patient. More than half the time was spent with the patient at the bedside reviewing the events leading up to his hospitalization, during this hospitalization, performing the physical examination, and reviewing the plan of care. ANJELICA HOUSER NP [id number]/[facility] #: [id number] [place]
== END 2017-12-01 12:21 | disposition home or self-care (01) ==
LOC: ED 14:02 → MEDTELE 16:36
PROVIDERS: ADMIT Internal Medicine; ATTEND Internal Medicine
DX: R55 Syncope and collapse (principal); R07.9 Chest pain, unspecified; R53.1 Weakness; M25.512 Pain in left shoulder; G89.29 Other chronic pain; E78.5 Hyperlipidemia, unspecified; I10 Essential (primary) hypertension; I25.10 Atherosclerotic heart disease of native coronary artery without angina pectoris; I73.9 Peripheral vascular disease, unspecified; K74.60 Unspecified cirrhosis of liver; B19.20 Unspecified viral hepatitis C without hepatic coma; R91.1 Solitary pulmonary nodule; J44.9 Chronic obstructive pulmonary disease, unspecified; Z79.899 Other long term (current) drug therapy; Z79.02 Long term (current) use of antithrombotics/antiplatelets; F17.210 Nicotine dependence, cigarettes, uncomplicated; Q21.1 Atrial septal defect
CPT/HCPCS: 36415; 70450; 70496; 70498; 70551; 71045; 80048; 80053; 80061; 81003; 82550; 83036; 83605; 84484; 85025; 85610; 85730; 87040; 87086; 93005; 93306; 93970; 96360; 96361; 99285; A9270-GY; G0378; J1644; Q9967